=== PATIENT | male | born 1985 | race Two or more races ===

== ENCOUNTER 2016-09-09 23:56 | Emergency (ER) | payer OTHER ==
--- NOTE | ~2016-09-09 | CT114 ---
[facility] A Service of [facility] RADIOLOGY TEXT RESULTS PATIENT: DARSHAN MARKHAM LOCATION: SED : 87 UNIT #: [id number] AGE: [address]: JORGE BATISTA PA-C SEX: M ORDER DR: [id number] [address] [address] [id number] E MR#: [id number] Acc #: [id number] NAME: DARSHAN MARKHAM : 1985 SEX: M STUDY DATE/TIME: 09/10/2016 01:26 UNIT: SED ROOM: STUDY DESCRIPTION: CT Soft Tissue Neck W Cont Attending Physician: Jorge Batista Pa-C Ordering Physician: Physician Non-Staff Primary Care Physician: Primary Care Physician No MEDICAL IMAGING REPORT This report is preliminary unless electronic signature is present. EXAM Neck CT 09/11/2015 at 01:26 INDICATION Sore throat for the last 4 days with swelling in the neck and difficulty swallowing. Pain rates 8/10. TECHNIQUE Axial images were obtained through the neck following IV contrast administration. Multiplanar reformats were obtained. No comparison. This CT examination was performed with one or more of the following radiation dose reduction techniques: automatic exposure control, adjustment of mA and/or kV according to patient size, and iterative reconstruction. FINDINGS Thyroid gland is normal. Larynx is normal. The epiglottis is normal. The uvula is potentially edematous. Correlate clinically. The tonsils are edematous bilaterally. Bilateral tonsillar abscesses are present. 1 on the left measures about 2.4 x 1.6 cm. 1 on the right measures at least 1.6 x 1.3 cm. The prevertebral soft tissues appear within normal limits. The floor of the mouth is normal. The salivary glands are normal. There is bilateral cervical adenopathy. This is presumably reactive. There is also some reactive-appearing adenopathy in the submental space. Lung apices are clear. There is a cystic lesion extending from the left maxilla into the left maxillary sinus. It measures approximately 3.2 x 2.3 x 2.4 cm. This appears to be associated with the roots of the adjacent molars. 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 Additionally, multiple dental cavities are present bilaterally. Followup with dental exam is recommended. IMPRESSION 1. Large bilateral tonsillar abscesses with fairly pronounced surrounding STS. [facility] A Service of [facility] RADIOLOGY TEXT RESULTS PATIENT: DARSHAN MARKHAM LOCATION: [facility] [place] : [birth year] UNIT #: [id number] AGE: [address]: JORGE BATISTA PA-C SEX: M ORDER DR: edema and mass effect. See measurements above. 2. Reactive adenopathy on both sides of the neck. 3. Poor dentition with multiple cavities noted. Additionally, there is a large cystic lesion extending from the left maxilla into the left maxillary sinus. 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 Non emergent dental exam followup is recommended for further evaluation. 4. The epiglottis and prevertebral soft tissues are within normal limits. The larynx is normal. Dictated by... Tom Nobles Jr., M.D. THIS IS AN ELECTRONICALLY VERIFIED REPORT Tom Nobles Jr., M.D. at 09/10/2016 11:15 AM TANK/shyanne TD: 09/10/2016 08:17 JOB #: [id number] MEDICAL IMAGING REPORT Page 1 of 1
[~2016-09-09 23:56] MED LIST: ADDERALL; ALBUTEROL17 GM; MED FOR ADD; PROAIR RESPICL90 MCG
[2016-09-10 00:06] LABS: BASOPHIL% 0.3 % (0-2.5); EOSINOPHIL# 0.1 X10e3 (0-0.7); EOSINOPHIL% 0.6 % (0.0-7.0); HEMATOCRIT 45.6 % (38.0-50.0); HEMOGLOBIN 15.7 gm/dL (13.0-16.0); LYMPHOCYTE# 0.9 X10e3 (1.0-3.5); MEAN CELL VOLUME 91.6 FL (83-96); MEAN CORPUSCULAR HEMOGLOBIN 31.6 PG (28-34); MEAN CORPUSCULAR HGB CONC 34.5 g/dL (30-36); MEAN PLATELET VOLUME 7.3 FL (6.5-11.5); MONOCYTE# 1.6 X10e3 (0-1.0); MONOCYTE% 10.8 % (3.0-12.0); NEUTROPHIL# 12.3 X10e3 (1.5-7.1); NEUTROPHIL% 82.3 % (40-75); PLATELET COUNT 203 X10e3 (140-420); RED BLOOD COUNT 4.98 X10e (3.90-5.60); RED CELL DISTRIBUTION WIDTH 12.3 % (11.0-15.5); WHITE BLOOD COUNT 14.9 X10e3 (4.0-10.5)
[2016-09-10 00:07] LABS: DIFF IND NO
[2016-09-10 00:21] LABS: ALBUMIN SERUM 3.9 g/dL (3.5-5.0); BILIRUBIN,TOTAL 1.1 mg/dL (0.2-2.0); CALCIUM SERUM 9.1 mg/dL (8.4-10.2); CREATININE SERUM 0.9 mg/dL (0.6-1.4); POTASSIUM 3.2 mmol/L (3.5-5.1); PROTEIN TOTAL SERUM 8.4 g/dL (6.0-8.3)
== END 2016-09-10 03:36 | disposition left against medical advice (07) ==
LOC: SED 23:56
PROVIDERS: Physician Assistant
DX: J02.0 Streptococcal pharyngitis (principal); J36 Peritonsillar abscess; J45.909 Unspecified asthma, uncomplicated; F17.210 Nicotine dependence, cigarettes, uncomplicated
CPT/HCPCS: 36415; 70491; 80053; 83605; 85025; 86308; 87040; 87880; 96365; 96374; 99285; J1100; Q9967

== ENCOUNTER 2016-09-20 19:41 | Emergency (ER) | payer OTHER ==
[2016-09-20 19:24] LABS: BASOPHIL# 0.1 X10e3 (0-0.3); BASOPHIL% 0.4 % (0-2.5); DIFF IND NO; EOSINOPHIL# 0.1 X10e3 (0-0.7); EOSINOPHIL% 0.9 % (0.0-7.0); HEMATOCRIT 46.1 % (38.0-50.0); HEMOGLOBIN 15.5 gm/dL (13.0-16.0); LYMPHOCYTE# 1.3 X10e3 (1.0-3.5); LYMPHOCYTE% 10.1 % (17.0-45.0); MEAN CELL VOLUME 92.3 FL (83-96); MEAN CORPUSCULAR HGB CONC 33.5 g/dL (30-36); MEAN PLATELET VOLUME 7.2 FL (6.5-11.5); MONOCYTE# 0.9 X10e3 (0-1.0); MONOCYTE% 6.6 % (3.0-12.0); NEUTROPHIL# 10.9 X10e3 (1.5-7.1); PLATELET COUNT 243 X10e3 (140-420); RED CELL DISTRIBUTION WIDTH 12.4 % (11.0-15.5); WHITE BLOOD COUNT 13.3 X10e3 (4.0-10.5)
[2016-09-20 19:45] LABS: BUN/CREATININE RATIO 11.25; CALCIUM SERUM 9.5 mg/dL (8.4-10.2); CREATININE SERUM 0.8 mg/dL (0.6-1.4); GLOM FILT RATE Estimated 120.8 mL/min (>60); POTASSIUM 3.5 mmol/L (3.5-5.1)
== END 2016-09-20 21:49 | disposition home or self-care (01) ==
LOC: CED 19:41
PROVIDERS: Student in an Organized Health Care Education/Training Program
DX: J36 Peritonsillar abscess (principal)
CPT/HCPCS: 36415; 80048; 85025; 96361; 96365; 96375; 99284; J0295; J1100; J2270